=== PATIENT | female | born 1955 | race Caucasian/White ===

== ENCOUNTER 2017-11-12 13:34 | Day surgery (SDC) | payer OTHER ==
[2017-11-12] MEDS ORDERED: FENTAnyl 50 MCG/ML VIAL (16:12)
[2017-11-12] MEDS ORDERED: MIDAZOLAM 1 MG/ML 2 ML INJ ×3 (16:12)
== END 2017-11-12 18:20 | disposition home or self-care (01) ==
LOC: GIL 13:34
DX: K21.0 Gastro-esophageal reflux disease with esophagitis (principal); K29.60 Other gastritis without bleeding; K64.8 Other hemorrhoids; K55.20 Angiodysplasia of colon without hemorrhage; Z86.010 Personal history of colon polyps
CPT/HCPCS: 43239; 87081; 88305; 88313